=== PATIENT | female | born 1990 | race Asian ===

== ENCOUNTER 2017-07-02 17:36 | Inpatient (IN) | payer OTHER ==
[2017-07-02] MEDS ORDERED: LIDOCAINE 1% 300 MG/30 ML SDV SC PRN (17:55)
[2017-07-02] MEDS ORDERED: EPSOM SALT 454 GM TP PRN (17:55)
[2017-07-02] MEDS ORDERED: MISOPROSTOL 200 MCG TAB PR PRN (17:55)
[2017-07-02] MEDS ORDERED: OXYTOCIN/RINGERS LACTATE 1,000 ML IV PRN (17:55)
[2017-07-02] MEDS ORDERED: LR 1,000 ML IV PRN (17:55)
[2017-07-02] MEDS ORDERED: TERBUTALINE SULFATE 1 MG/ML VIAL IV PRN (17:55)
[2017-07-02] MEDS ORDERED: OLIVE OIL 118 ML BTL MISC PRN (17:55)
[2017-07-02] MEDS ORDERED: IBUPROFEN 600 MG TAB PO PRN (17:55)
[2017-07-02 18:11] LABS: PLATELET COUNT 230 10^3/uL (150-400)
[2017-07-02] MEDS ORDERED: PHENYLEPHRINE HCL 100 MCG/ML SYR ONE (18:17)
[2017-07-02] MEDS ORDERED: fentaNYL 100 MCG/2 ML INJ ONE (18:17)
[2017-07-02] MEDS ORDERED: fentaNYL 200 MCG, BUPIVACAINE 0.5% 20 ML in NS 100 ML EP SCH (18:30)
--- NOTE | 2017-07-02 19:25 | PDGENHP ---
History and Physical History and Physical: CARE: [facility] HPI: Patient is a 26 yo with IUP@40-1 that presents to L&D with complaints of contractions since 1000 that have been increasing in intensity. She denies any LOF, VB. She reports +FM. EDC: 07/01/2017 which is based on LMP: 09/23/17 which is known and consistent with Ultrasound at 8 weeks. Her is complicated by: EFW 91st% at 20wks (repeat EFW NL) Review of Systems: Constitutional: Denies any fever, chills, or fatigue HEENT: denies any visual changes, difficulty swallowing, hearing loss Cardiovascular: Denies any chest pain, palpitations, leg swelling Respiratory: denies any cough, wheezing, or shortness of breathe GI: Denies any nausea, vomiting, diarrhea, constipation : denies any dysuria, urgency, frequency, vaginal bleeding Musculoskeletal: denies any muscle or bone pain Skin: denies any rashes Neuro: denies any headache, seizures, lightheadedness, dizziness, or loss of consciousness Psychiatric: denies any depression, anxiety, or SI/HI thoughts HISTORY: Previous OB history: G1 Past medical history: asthma as child (no problems since 8yo) Past surgical history: oral surgery Medications: PNV Allergies (list reaction): NKDA LABS: Rh: O pos ABS: Neg Rubella: Immune HbsAg: NR HIV: NR VDRL: NR 1hr: 103 GC: Neg Chlamydia: Neg Pap: Normal GBS: negative BMI: (prepreg) 21 PHYSICAL EXAM: Constitutional: WN, A&Ox3 HEENT: normocephalic atraumatic, supple Heart: RRR, no murmur Chest: CTA-B Abdomen: Soft, nontender, gravid SVE: 6/-1 Extremities: no edema, negative homans sign Neuro: grossly normal Psych: normal affect assessment: Reassuring FHTs, baseline 130+accels, no decels, moderate variability Contractions: toco q irregular Assessment: 1) 26yo G1 with IUP@40-1wks 2) early labor 3) GBS negative 4) Cat 1 FHR tracing Plan: 1) Admit to L&D 2) CHRISTINA per pt request 3) AROM 4) anticipate
[2017-07-02] MEDS ORDERED: PHENYLEPHRINE HCL 100 MCG/ML SYR IVP PRN (19:29)
--- NOTE | 2017-07-02 19:29 | PDANEPAE ---
ANE History of Present Illness labor ANE Past Medical History - Cardiovascular History Hx Hypertension: No Hx Arrhythmias: No Hx Chest Pain: No Hx Coronary Artery / Peripheral Vascular Disease: No Hx CHF / Valvular Disease: No Hx Palpitations: No - Pulmonary History Hx COPD: No Hx Asthma/Reactive Airway Disease: No Hx Recent Upper Respiratory Infection: No Hx Oxygen in Use at Home: No Hx Sleep Apnea: No - Neurologic History Hx Cerebrovascular Accident: No Hx Seizures: No Hx Dementia: No - Endocrine History Hx Diabetes: No Hypothyroid: No Hyperthyroid: No - Renal History Hx Renal Disorders: No - Liver History Hx Hepatic Disorders: No - Other Health History Other Health History: scoliosis ANE Review of Systems Review of Systems: - Exercise capacity Exercise capacity: >=4 METS ANE Patient History - Allergies Allergies/Adverse Reactions: No Known Allergies Allergy (Unverified 07/02/17 17:55) - Anes Hx Anes Hx: no prior problems ANE Labs/Vital Signs - Labs Result Diagrams: 07/02/17 17:59 - Vital Signs Height: 160.02 cm Weight: 68.946 kg ANE Physical Exam - Airway Mallampati Score: Class 2 Mouth exam: normal dental/mouth exam - Pulmonary Pulmonary: no respiratory distress - Cardiovascular Cardiovascular: regular rate and rhythym - ASA Status ASA Status: II ANE Anesthesia Plan Anesthesia Plan: spinal, epidural
--- NOTE | 2017-07-02 19:29 | PREANESOB ---
Obstetric Pre-Anesthesia Info - General Info Proposed Procedure: trial of labor - Info Status: Full Term Monitors: External FHR Pattern: Reassuring - Labor Status Indications for Labor Analgesia: Pain Control Labor Epidural: Yes Anesthesia Allergies/Adverse Reactions: Allergy/AdvReac Type Severity Reaction Status Date / Time No Known Allergies Allergy Unverified 07/02/17 17:55 Visit Medications: Generic Name Dose Route Start Last Admin Trade Name Freq PRN Reason Stop Dose Admin Lactated Ringer's 1,000 mls @ 0 mls/hr 07/02/17 17:55 Lr IV 07/03/17 17:54 PRN PRN SEE PROTOCOL CONDITIONS Protocol Per Protocol Oxytocin/Lactated Ringer's 1,000 mls @ 125 mls/hr 07/02/17 17:55 Pitocin 20 Units/Lr (Premix) IV PRN PRN Post bleeding Fentanyl 200 mcg/ Bupivacaine 100 mls @ 0 mls/hr 07/02/17 18:30 HCl 20 ml/ Sodium Chloride EP 07/12/17 18:29 CONT STELLA Protocol As Directed Ibuprofen 600 mg 07/02/17 17:55 Motrin PO ONCE PRN post , pain Lidocaine HCl 300 mg 07/02/17 17:55 Lidocaine Hcl 1% SC 12/29/17 17:54 ONCE PRN episiotomy Magnesium Sulfate 454 gm 07/02/17 17:55 Epsom Salt TP 12/29/17 17:54 Q1H PRN perineal discomfort Misoprostol 800 - 1,000 mcg 07/02/17 17:55 Cytotec IN ONCE PRN Vaginal Atony/Bleeding [place] Oil 118 ml 07/02/17 17:55 Sweet Oil MISC 12/29/17 17:54 ONCE PRN perineal massage Terbutaline Sulfate 0.25 mg 07/02/17 17:55 Brethine IV 12/29/17 17:54 ONCE PRN Tachysystole Discontinued Medications Generic Name Dose Route Start Last Admin Trade Name Freq PRN Reason Stop Dose Admin Fentanyl Confirm 07/02/17 18:17 Sublimaze Administered 07/02/17 18:18 Dose 100 mcg .ROUTE .STK-MED ONE Phenylephrine HCl Confirm 07/02/17 18:17 Neosynephrine Administered 07/02/17 18:18 Dose 1,000 mcg .ROUTE .STK-MED ONE - Vital Signs Height/Weight (Nursing): Height 160.02 cm Weight 68.946 kg Labs: 07/02/17 17:59 Patient ABO/Rh O POSITIVE 07/02/17 17:59
[2017-07-02] MEDS ORDERED: fentaNYL 2MCG/ML/BUP 0.1% RTU 100 ML EP SCH (19:30)
[2017-07-02] MEDS ORDERED: LR 500 ML IV SCH (19:30)
[2017-07-02] MEDS ORDERED: OXYTOCIN 10 UNIT/ML VIAL ONE (20:09)
[2017-07-02] MEDS ORDERED: OLIVE OIL 118 ML BTL ONE (20:09)
[2017-07-02] MEDS ORDERED: AMMONIA AROMATIC 1 EACH AMP IH ONE (20:09)
[2017-07-02] MEDS ORDERED: TERBUTALINE SULFATE 1 MG/ML VIAL ONE (20:09)
[2017-07-02] MEDS ORDERED: MISOPROSTOL 200 MCG TAB ONE (20:09)
[2017-07-02] MEDS ORDERED: LIDOCAINE 1% 300 MG/30 ML SDV ONE (20:09)
--- NOTE | 2017-07-02 21:08 | OBPROG ---
Labor Progress Note Assessment/Plan: Assessment: [id number] with IUP@40-1 Active labor GBS Negative Cat 1 FHR tracing Plan: expectant management reassess 2hr/PRN anticipate 07/02/17 21:05 Subjective/Intrapartum Course: 07/02/17 21:08 Pt doing well, comfortable with CHRISTINA. She denies any pain. She reports more feeling on left side- therefore is laying on her left side. Clement is at BS and supportive. Objective: 07/02/17 17:59 Patient ABO/Rh O POSITIVE 07/02/17 17:59 - SVE Dilation (cm): 7 Effacement (%): 90 Station: 0 Membranes: AROM Amniotic Fluid Color: Clear - Contraction Pattern Assessment Current Contraction Pattern: Regular - FHR Assessment Abel FHR (bpm): 145 FHR Pattern Variability: Moderate FHR Category: 1 - Procedures Non-surgical Procedures: Amniotomy ICD10 Worksheet Patient Problems: Problems Problem Status Onset Labor and delivery, indication for care Acute - ICD10 Problem Qualifiers (1) Labor and delivery, indication for care
[2017-07-02] MEDS ORDERED: LR 500 ML IV PRN (22:27)
[2017-07-02] MEDS ORDERED: OXYTOCIN/RINGERS LACTATE 500 ML IV SCH (22:30)
--- NOTE | 2017-07-02 23:10 | OBPROG ---
Labor Progress Note Assessment/Plan: Assessment: [id number] with IUP@40-1 Active labor GBS Negative Cat 1 FHR tracing Plan: start pitocin augmentation at this time- pt agrees reassess 2hr/PRN anticipate 07/02/17 21:05 07/02/17 23:09 Subjective/Intrapartum Course: 07/02/17 21:08 Pt doing well, comfortable with CHRISTINA. She denies any pain. She reports more feeling on left side- therefore is laying on her left side. Clement is at BS and supportive. Objective: 07/02/17 17:59 Patient ABO/Rh O POSITIVE 07/02/17 17:59 - SVE Dilation (cm): 8 Effacement (%): 90 Station: 0 Membranes: AROM Amniotic Fluid Color: Clear - Contraction Pattern Assessment Current Contraction Pattern: Regular - Procedures Non-surgical Procedures: Amniotomy Oxytocin Orders Assessment - Pre-Induction/Augmentation Assessment Gestational Age: 40 week(s) and 1 day(s) ICD10 Worksheet Patient Problems: Problems Problem Status Onset Labor and delivery, indication for care Acute - ICD10 Problem Qualifiers (1) Labor and delivery, indication for care
[2017-07-03] MEDS ORDERED: ACETAMINOPHEN 500 MG TAB PO PRN (00:45)
[2017-07-03] MEDS ORDERED: ONDANSETRON 4 MG/2 ML VIAL IVP PRN (02:06)
--- NOTE | 2017-07-03 02:09 | OBPROG ---
Labor Progress Note Assessment/Plan: Assessment: [id number] with IUP@40-1 Active labor- augmentation with pitocin GBS Negative Cat 1 FHR tracing Plan: cont pitocin attempt pushing if not effective will labor down anticipate Subjective/Intrapartum Course: 07/02/17 21:08 Pt doing well, comfortable with CHRISTINA. She denies any pain. She reports more feeling on left side- therefore is laying on her left side. Clement is at BS and supportive. Objective: 07/02/17 17:59 Patient ABO/Rh O POSITIVE 07/02/17 17:59 - SVE Dilation (cm): 10 Effacement (%): 100 Station: 0 Membranes: AROM Amniotic Fluid Color: Clear - Contraction Pattern Assessment Current Contraction Pattern: Regular - Procedures Non-surgical Procedures: Amniotomy, Other (Specify) (small laceration at introitus- bleeding, figure 8 suture placed with 3.[address]-1, hemostasis achieved.) Oxytocin Orders Assessment - Pre-Induction/Augmentation Assessment Gestational Age: 40 week(s) and 1 day(s) ICD10 Worksheet Patient Problems: Problems Problem Status Onset Labor and delivery, indication for care Acute - ICD10 Problem Qualifiers (1) Labor and delivery, indication for care
--- NOTE | 2017-07-03 05:37 | OBPROG ---
Labor Progress Note Assessment/Plan: Assessment: [id number] with IUP@40-1 Active labor- augmentation with pitocin GBS Negative Cat 1 FHR tracing Plan: cont pitocin cont pushing anticipate 07/03/17 05:36 Subjective/Intrapartum Course: Pt doing well, she is having the urge to push with contractions. She is experiencing increasing back pain- likely due to OP position. Objective: 07/02/17 17:59 Patient ABO/Rh O POSITIVE 07/02/17 17:59 - SVE Dilation (cm): 10 Effacement (%): 100 Station: +1 Membranes: AROM Amniotic Fluid Color: Clear - Contraction Pattern Assessment Current Contraction Pattern: Regular - Procedures Non-surgical Procedures: Amniotomy, Other (Specify) (small laceration at introitus- bleeding, figure 8 suture placed with 3.[address]-1, hemostasis achieved.) Oxytocin Orders Assessment - Pre-Induction/Augmentation Assessment Gestational Age: 40 week(s) and 1 day(s) ICD10 Worksheet Patient Problems: Problems Problem Status Onset Labor and delivery, indication for care Acute - ICD10 Problem Qualifiers (1) Labor and delivery, indication for care
[2017-07-03] MEDS ORDERED: LIDO/EPI 2% **for epidural** 20 ML SDV ONE (07:00)
[2017-07-03] MEDS ORDERED: SIMETHICONE 80 MG TAB CHEW PO PRN (12:50)
[2017-07-03] MEDS ORDERED: HYDROCODONE/APAP 5/325 TAB PO PRN (12:50)
[2017-07-03] MEDS ORDERED: HYDROCORTISONE 0.5% CREAM TP PRN (12:50)
--- NOTE | 2017-07-03 12:53 | OBDEL ---
Info Type: Vaginal Presentation at Delivery: Vertex L&D Analgesia/Anesthesia Type: Epidural GBS+: No Intrapartum Medications: Generic Name Dose Route Start Last Admin Trade Name Freq PRN Reason Stop Dose Admin Oxytocin/Lactated Ringer's 500 mls @ 0 mls/hr 07/02/17 22:30 07/02/17 22:37 Pitocin 30 Units/Lr (Premix) IV 12/29/17 22:29 500 mls CONT STELLA Administration Protocol Per Protocol Discontinued Medications Generic Name Dose Route Start Last Admin Trade Name Freq PRN Reason Stop Dose Admin Ibuprofen 600 mg 07/02/17 17:55 07/03/17 12:41 Motrin PO 600 mg ONCE PRN Administration post , pain - Infant Care Provider Mathematics Lecturer/DIALYSIS RN: Bri Anderson - Hospital Course Intrapartum: Pt doing well, she is having the urge to push with contractions. She is experiencing increasing back pain- likely due to OP position. Indications for Delivery: Spontaneous Labor Vaginal Delivery - Delivery Provider Delivery Physician/CNM: Aidee White - Labor and Delivery Onset of Contractions Date: 07/02/17 Onset of Contractions Time: 10:00 Onset of Contractions Type: Augmented Rupture of Membranes Date: 07/02/17 Rupture of Membranes Time: 20:25 Rupture of Membranes Type: Artificial Amniotic Fluid Color: Clear Dilation Complete Date: 07/03/17 Dilation Complete Time: 00:05 Placenta Delivery Date: 07/03/17 Placenta Delivery Time: 12:05 Total Hours of Labor: 26 Non-surgical Procedures: Amniotomy, Other (Specify) (small laceration at introitus- bleeding, figure 8 suture placed with 3.[address]-1, hemostasis achieved.) Laceration: 2nd Degree Repair: 3-0, Vicryl Vaginal Sponge Count Correct: Yes Vaginal Needle Count Correct: Yes Vaginal Sweep Performed: Yes EBL: 350 cc Delivery Events: Other (Specify) (Compound presentation; LOT; mild shoulder dystocia resolved with suprapubic pressure with delivery of R anterior shoulder) Cord Gases: Cord Gases Cord Blood PCO2 36.2 mmHg (37-60) L 07/03/17 12:00 Cord Base Excess -8.2 mEq/L (-13.6--3.2) 07/03/17 12:00 Cord ABG pH 7.30 (7.10-7.37) 07/03/17 12:00 Cord VBG pH 7.30 (7.20-7.42) 07/03/17 12:00 - Medications Labor Augmentation/Induction Methods Used: Pitocin Labor Augmentation/Induction Indication: Contraction Strength Inadequate Operative Report - Delivery Cord Gases: Cord Gases Cord Blood PCO2 36.2 mmHg (37-60) L 07/03/17 12:00 Cord Base Excess -8.2 mEq/L (-13.6--3.2) 07/03/17 12:00 Cord ABG pH 7.30 (7.10-7.37) 07/03/17 12:00 Cord VBG pH 7.30 (7.20-7.42) 07/03/17 12:00 Assissted Delivery Assisted Delivery Type: Vacuum Station: +2 Pop offs (Total): 1 Pulls (Total): 5 Assisted Delivery Comment: Discussed R/B/A of using vacuum for assistance of baby boy. Pt and both aware of risks and wants to proceed. Kiwi vacuum was applied at +2 station, direct OP, for a set of 2 contractions with one pop-off using adequate pressures throughout. Pt then pushed for another set of 3-4 ctx's with descent to +3 station. Kiwi then reapplied at +3 station, with head now LOT, for a set of 3 contractions with no pop-offs and then removed as head was , adequate pressures throughout procedure. Pt tolerated well. No complications. [place] Data BABAR: 07/01/17 Gestational Age: 40 week(s) and 2 day(s) Abel Delivery Date: 07/03/17 Delivery Time: 12:00 Sex of Infant: Male ("Jm") Score (1 Min): 8 Score (5 Min): 9 Shoulder Dystocia Time Head Delivered: 12:00 Time Body Delivered: 12:00 1st Maneuver Attempted Maneuvers: Moises 2nd Maneuver Attempted Maneuvers: Suprapubic Pressure (R anterior shoulder then delivered after suprapubic pressure given by Rn-Tammie Street with delivery of posterior shoulder and body without difficulty; there was noted be a compound presentation.) ICD10 Worksheet Patient Problems: Problems Problem Status Onset Labor and delivery, indication for care Acute Vacuum extraction, delivered, current hospitalization Acute - ICD10 Problem Qualifiers (1) Vacuum extraction, delivered, current hospitalization
[2017-07-04] MEDS: IBUPROFEN 600 MG TAB PO PRN ×3 (01:15→15:19)
[2017-07-04] MEDS: DOCUSATE SODIUM 100 MG CAP PO PRN (08:50)
--- NOTE | 2017-07-04 10:44 | OBPP ---
Progress Note Assessment/Plan: Assessment: 24 y/o s/p vacuum assisted vaginal delivery at 40.2 weeks ega Baby in NICU doing well Plan: Routine pp care Anticipate d/c tomorrow -possibly to "rooming in" status if baby still in NICU 07/04/17 10:41 07/04/17 10:46 07/04/17 10:47 Subjective/ Course: 07/04/17 10:43 Patient is doing well this morning. Baby is in the NICU but doing well. Currently skin to skin with baby - going well. Reports lochia to be light, pain controlled with oral medication, tolerating regular diet and voiding. Objective: 07/02/17 17:59 Patient ABO/Rh O POSITIVE 07/02/17 17:59 Temp Pulse Resp BP Pulse Ox 37.1 C 76 14 110/72 95 07/03/17 20:00 07/03/17 20:00 07/03/17 20:00 07/03/17 20:00 07/03/17 14:15 VSS Respirations unlabored Extremities with minimal edema Lochia scant Fundus firm Perineum healing well - well approximated Nipples intact Uterine Position/Fundal Height: At Umbilicus Uterine Tone: Firm Physical Exam - Physical Exam EENT: PERRL/EOMI Neck: non-tender Respiratory: chest non-tender Cardiac/Chest: normal peripheral pulses, regular rate, rhythm Abdomen: soft, distended Extremities: normal range of motion Skin: normal color, warm/dry Neuro/Psych: no motor/sensory deficits, alert, normal mood/affect, oriented x 3
--- NOTE | 2017-07-04 14:07 | POSTANESTH ---
Post Anesthetic Evaluation Cardiovascular Status: Normal, Stable Respiratory Status: Normal, Stable Level of Consciousness/Mental Status: Can Participate in Eval Pain Control: Adequate, Prn Tx Ordered Nausea/Vomiting Control: Adequate, Prn Tx Ordered Complications Possibly Related to Anesthesia: None Noted Notes: pt with mild numbness in R leg yesterday, completely resolved today. Mild soreness at epidural site. otherwise pt states she is doing well
[2017-07-05] MEDS: IBUPROFEN 600 MG TAB PO PRN ×2 (01:25→10:56)
[2017-07-05 09:54] VITALS: BP 115/66
[2017-07-05] MEDS: DOCUSATE SODIUM 100 MG CAP PO PRN (10:56)
--- NOTE | 2017-07-05 12:26 | OBPP ---
Progress Note Assessment/Plan: Assessment: s/p VAVD PPD #2 - pt is stable Plan: Plan for d/c home today, she will board since baby boy is in NICU for low BS Instructions reviewed with pt No Rx given Cont PNV, Motrin and colace-stool softener Pelvic rest RTC in 4 and 6 weeks for pp check 07/05/17 12:22 Subjective/ Course: 07/04/17 10:43 Patient is doing well this morning. Baby is in the NICU but doing well. Currently skin to skin with baby - going well. Reports lochia to be light, pain controlled with oral medication, tolerating regular diet and voiding. 07/05/17 12:24 Pt seen and examined. Doing well, with no complaints. Notes mild cramping when BF. Mod lochia. She is OOB, tita reg diet, voiding and BMx 1. BF will so far and also pumping to help milk come in. Baby boy is NICU and hopefully if BS stable d /c home 07/06. Objective: 07/02/17 17:59 Patient ABO/Rh O POSITIVE 07/02/17 17:59 Temp Pulse Resp BP Pulse Ox 36.5 C 99 16 115/66 97 07/05/17 08:00 07/05/17 08:00 07/05/17 08:00 07/05/17 08:00 07/04/17 21:45 Uterine Position/Fundal Height: Umbilicus -2 Uterine Tone: Firm Physical Exam - Physical Exam Respiratory: lungs clear, normal breath sounds Cardiac/Chest: regular rate, rhythm Abdomen: normal bowel sounds, non-tender, soft, flatus (+) Extremities: non-tender, normal inspection Skin: normal color, warm/dry Neuro/Psych: alert, normal mood/affect, oriented x 3
--- NOTE | 2017-07-05 12:26 | OBGCSDC ---
General Delivery Information - General Info : 1 Para: 1 Abortions: 0 Type: Vaginal L&D Analgesia/Anesthesia Type: Epidural Admission Date: 07/02/17 Labs: Patient ABO/Rh O POSITIVE 07/02/17 17:59 Hct 39.2 % (38.0-47.0) 07/02/17 17:59 - Hospital Course Intrapartum: Pt doing well, she is having the urge to push with contractions. She is experiencing increasing back pain- likely due to OP position. : 07/04/17 10:43 Patient is doing well this morning. Baby is in the NICU but doing well. Currently skin to skin with baby - going well. Reports lochia to be light, pain controlled with oral medication, tolerating regular diet and voiding. 07/05/17 12:24 Pt seen and examined. Doing well, with no complaints. Notes mild cramping when BF. Mod lochia. She is OOB, tita reg diet, voiding and BMx 1. BF will so far and also pumping to help milk come in. Baby boy is NICU and hopefully if BS stable d /c home 07/06. Vaginal - Delivery Provider Delivery Physician/CNM: Aidee White - Diagnosis Labor: Augmented Rupture of Membranes Type: Artificial Amniotic Fluid Color: Clear Laceration: 2nd Degree Repair: 3-0, Vicryl Delivery Events: Other (Specify) (Compound presentation; LOT; mild shoulder dystocia resolved with suprapubic pressure with delivery of R anterior shoulder) - Procedures Assisted Delivery Type: Vacuum Non-surgical Procedures: Amniotomy, Other (Specify) (small laceration at introitus- bleeding, figure 8 suture placed with 3.[address]-1, hemostasis achieved.) - Delivery Non-surgical Procedures: Amniotomy, Other (Specify) (small laceration at introitus- bleeding, figure 8 suture placed with 3.[address]-1, hemostasis achieved.) EBL: 350 cc [place] Data BABAR: 07/01/17 Gestational Age: 40 week(s) and 4 day(s) Abel Delivery Date: 07/03/17 Delivery Time: 12:00 Sex of : Male ("Jm") [place] Weight (gm): 3446 g Score (1 Min): 8 Score (5 Min): 9 Discharge Information - Discharge Information Condition: Good Instruction/Follow Up: Four Weeks, Six Weeks
== END 2017-07-05 17:56 | disposition home or self-care (01) | DRG 775 ==
LOC: FLD 17:36 → FOB 07-03 16:14
PROVIDERS: ADMIT Advanced Practice Midwife; ATTEND Advanced Practice Midwife
DX: O70.1 Second degree perineal laceration during delivery (principal); Z37.0 Single live birth; Z3A.40 40 weeks gestation of pregnancy
CPT/HCPCS: J2370; J2590; J3010; J3105